=== PATIENT | male | born 1945 ===

== ENCOUNTER 2017-02-24 06:07 | Day surgery (SDC) | payer MEDICARE ==
[2017-02-24 06:39] VITALS: BMI 26.7
[2017-02-24] MEDS: Lactated Ringer's 500 ML IV ONE ×2 (07:00→08:24)
[2017-02-24] MEDS ORDERED: Propofol 10 mg/ml Inj (20 ML) ONE (07:42)
[2017-02-24] MEDS ORDERED: Lidocaine 1% 5ml Abboject IV ONE (07:43)
[2017-02-24] MEDS ORDERED: Lidocaine 2% Jelly (5 ml) TOP ONE (07:43)
[2017-02-24] MEDS ORDERED: Midazolam 2 MG/2 ML VIAL ONE (07:43)
[2017-02-24] MEDS ORDERED: Lidocaine 2% Jelly (Uro-Jet) ONE (07:44)
[2017-02-24] MEDS: cefTRIAXone (Rocephin) 1 gm Inj ONE (07:50)
[2017-02-24] MEDS ORDERED: Lactated Ringer's 1,000 ML IV SCH (09:00)
[2017-02-24] MEDS: HYDROmorphone 0.5 mg/0.5 ml ISec IVP PRN (09:07)
[2017-02-24 10:21] VITALS: RESP 18
[2017-02-24 10:27] VITALS: O2SAT 95
[2017-02-24 12:29] VITALS: BP 110/60; PULSE 88; TEMP 97.9
--- NOTE | 2017-02-24 14:04 | OP ---
PROCEDURE DATE: 02/24/2017 PREOPERATIVE DIAGNOSES: Benign prostatic hyperplasia, urinary retention. POSTOPERATIVE DIAGNOSES: Benign prostatic hyperplasia, urinary retention. PROCEDURE PERFORMED: GreenLight laser of the prostate. DESCRIPTION OF PROCEDURE: The patient was placed on the operating table in the dorsal lithotomy position. His indwelling Morris catheter was removed. He was given general anesthesia. The area of the groin was draped and prepped in a sterile manner. Under direct vision, with the laser scope, I entered into the bladder atraumatically. I identified the adenoma that needed to be resected. Using a laser fiber at 80 nguyen, I burnt two solorzano in the distal portion of the resection and then began to resect first the middle lobe followed by the right and the left lateral lobes. There was no significant bleeding noted throughout the procedure. I went from 80 nguyen to a maximum of 180 nguyen for completion of this procedure. Once this was done, there was an ample opening from the verumontanum into the bladder. Ureteral orifices were clearly seen and spared. The instrumentation at the end of the procedure was removed. A #22 three-way Morris catheter was inserted. Initial CBI was visually clear. The patient was taken from the operating room in good condition. Tiffanie Soria MD
== END 2017-02-24 12:25 | disposition home or self-care (01) ==
LOC: H.OPSURG 06:07
PROVIDERS: ATTEND Urology
DX: R33.8 Other retention of urine (principal); E78.5 Hyperlipidemia, unspecified; N40.0 Benign prostatic hyperplasia without lower urinary tract symptoms; I10 Essential (primary) hypertension; M10.9 Gout, unspecified; G25.81 Restless legs syndrome; E55.9 Vitamin D deficiency, unspecified; M19.91 Primary osteoarthritis, unspecified site
CPT/HCPCS: 52648; J0696; J1170; J2250; J2704; J2765; J3010; J7030; J7120